=== PATIENT | female | born 1980 | race Caucasian/White ===

== ENCOUNTER → 2022-06-08 | Outpatient (CLI) | payer BC | LOC: COL.RAD 10:33 | DX: E21.3 Hyperparathyroidism, unspecified (principal) | CPT/HCPCS: A9500 ==

== ENCOUNTER → 2023-06-15 | Outpatient (CLI) | payer BC | LOC: MC.RAD 13:20 | DX: R92.8 Other abnormal and inconclusive findings on diagnostic imaging of breast (principal) ==